=== PATIENT | male | born 1980 | race Caucasian/White ===

== ENCOUNTER 2019-01-15 19:45 | Emergency (ER) | payer OTHER, SELFPAY ==
[~2019-01-15] VITALS: Ht 190.5 cm; Wt 87.0 kg
[2019-01-15] MEDS ORDERED: HYDROcodone/APAP 5/325 TABLET PO ONE (20:30)
[2019-01-15] MEDS ORDERED: HYDROcodone/APAP 5/325 TABLET ONE ×2 (20:30→20:31)
--- NOTE | 2019-01-15 20:33 | NUR ---
THIS IS A 38 YO MALE PT BIB [facility] C/O RIGHT WRIST PAIN/SWELLING/ABRAISIONS AND LEFT KNEE PAIN AFTER A MGLF. PT ABLE TO MOVE WRIST AND WIGGLE FINGERS. PT C/O NUMBNESS/TINGLING, ABLE TO FEEL PAIN WHEN RN OR PA TOUCH HAND. TENDER TO PALP. PT ABLE TO MOVE KNEE, C/O PAIN WITH MOVEMENT AND TENDER TO PALP. PT ADMITS TO DRINKING 4 BEERS IN 1 HOUR TONIGHT. 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 PT ON CONT BP AND O2 MONITORS. CALL LIGHT WITHIN REACH. WILL CONT TO MONITOR PT.
--- NOTE | 2019-01-15 20:37 | NUR ---
TASK RN: PT. MEDICATED PER DEC FOR C/O 06/25 RIGHT WRIST AND KNEE PAIN. VS UPDATED. CALL LIGHT IN REACH. ALL SAFETY MEASUES OBSERVED.
[2019-01-15 21:28] VITALS: BP 106/79
== END 2019-01-15 21:29 | disposition home or self-care (01) ==
LOC: ED 21:23
DX: S63.521A Sprain of radiocarpal joint of right wrist, initial encounter (principal); S60.211A Contusion of right wrist, initial encounter; S60.222A Contusion of left hand, initial encounter; S80.02XA Contusion of left knee, initial encounter; E78.5 Hyperlipidemia, unspecified; I48.91 Unspecified atrial fibrillation; W01.0XXA Fall on same level from slipping, tripping and stumbling without subsequent striking against object, initial encounter; Y93.89 Activity, other specified; Y92.89 Other specified places as the place of occurrence of the external cause; Y99.8 Other external cause status
CPT/HCPCS: 99283

== ENCOUNTER 2019-01-16 01:26 | Emergency (ER) | payer SELFPAY ==
[~2019-01-16] VITALS: Ht 190.5 cm; Wt 93.5 kg
--- NOTE | 2019-01-16 01:49 | NUR ---
Note clement in EDM - 01/16/19 at 0315 by MADDIE PT. STATES "I AM SEEING THINGS AND HEARING THINGS AND I THINK PEOPLE ARE AFTER ME." DENIES SI/HI BUT STATES "THE VOICES TELL ME TO KILL JUMP OFF THE BRIDGE BUT I'M NOT GOING TO". PT. IS HOMELESS AT THIS TIME. PT'S BELONGINGS REMOVED FROM ROOM (2 BAGS) L0CKED IN SECURITY LOCKER, GARAGE DOORS DOWN, SITTER IN STEWART FOR CONTINOUS MONITORING.
--- NOTE | 2019-01-16 01:49 | NUR ---
PT STATES "I AM SEEING THINGS AND HEARING THINGS AND I THINK PEOPLE ARE AFTER ME." DENIES SI/HI BUT STATES "THE VOICES TELL ME TO KILL JUMP OFF THE BRIDGE BUT I'M NOT GOING TO". PT IS HOMELESS AT THIS TIME. PT'S BELONGINGS REMOVED FROM ROOM (2 BAGS) L0CKED IN SECURITY LOCKER, GARAGE DOORS DOWN, SITTER IN STEWART FOR CONTINOUS MONITORING.
[2019-01-16 02:15] VITALS: BP 145/82
--- NOTE | 2019-01-16 02:40 | NUR ---
SPOKE WITH ABOUT PT. PT TO BE DISCHARGED AFTER. SPLINT APPLIED. PT HAS BEEN SEEN HERE YESTERDAY AND ALSO AT [facility]. PT IS HOMELESS AND HAS NO WHERE TO GO. PT OFFERED CAB VOUCHER TO HALFWAY. PT HAS AN APPT AT [facility] IN AM. PT GIVEN BELONGINGS AND DISCHARGE PAPERS.
--- NOTE | 2019-01-16 02:54 | NUR ---
PT ANGRY ABOUT BEING DISCHARGED. MD CAME BACK AND SPOKE TO PT. PT BECOMING INCREASINGLY AGITATED. SECURITY CALLED TO ASSIST WITH DISCHARGE.
== END 2019-01-16 03:02 | disposition home or self-care (01) ==
LOC: ED 02:49
DX: S60.211A Contusion of right wrist, initial encounter (principal); F20.9 Schizophrenia, unspecified; E78.5 Hyperlipidemia, unspecified; I48.91 Unspecified atrial fibrillation; Z72.9 Problem related to lifestyle, unspecified; Z59.0 Homelessness; Z76.5 Malingerer [conscious simulation]; F17.200 Nicotine dependence, unspecified, uncomplicated; W19.XXXA Unspecified fall, initial encounter; Y93.89 Activity, other specified; Y92.89 Other specified places as the place of occurrence of the external cause; Y99.8 Other external cause status
CPT/HCPCS: 29125; 99284

== ENCOUNTER 2020-02-28 22:58 | Inpatient (IN) | payer MEDICAID ==
[~2020-02-28] VITALS: Ht 167.6 cm; Wt 95.3 kg
[~2020-02-28 22:58] MED LIST: CLON0.1T22 PO; WARF1TAB PO
[2020-02-28] MEDS ORDERED: ACETAMINOPHEN 325 MG TABLET PO PRN (23:30)
[2020-02-28] MEDS ORDERED: NITROGLYCERIN 0.4 MG/SPRAY SL PRN (23:30)
[2020-02-28] MEDS ORDERED: NITROGLYCERIN 0.4 MG BOTTLE (25 TABS) SL PRN (23:30)
[2020-02-28] MEDS ORDERED: PLEASE ENTER HEIGHT AND WEIGHT MC SCH (23:45)
[2020-02-29] VITALS (7 sets, daily range): BP systolic 111–160; BP diastolic 62–97
[2020-02-29] MEDS: morphine SULFATE 10 MG/ML, 1ML IVPush PRN ×3 (00:05→08:12)
[2020-02-29 00:11] LABS: TROPONIN I < 0.015 ng/mL (0.000-0.045)
[2020-02-29] MEDS: HEPARIN 5,000 UNITS/ML, 1ML SQ SCH ×3 (01:25→15:30)
[2020-02-29] MEDS: LORazepam 0.5MG TABLET PO PRN ×2 (01:25→05:44)
[2020-02-29] MEDS ORDERED: LORazepam 2 MG/ML, 1ML IV PRN ×5 (01:30)
[2020-02-29] MEDS ORDERED: LORazepam 1MG TABLET PO PRN ×2 (01:30)
[2020-02-29 02:47] LABS: TROPONIN I < 0.015 ng/mL (0.000-0.045)
[2020-02-29] MEDS: ASPIRIN 325 MG TABLET EC PO SCH (05:44)
[2020-02-29 06:10] LABS: CHOLESTEROL, TOTAL 129 mg/dL (140-239); HDL CHOL % 25 % (26-37); HDL CHOLESTEROL (DIRECT) 32 mg/dL (40-60); LDL CHOLESTEROL,CALCULATED 22 mg/dL (54-169); LDL/HDL RATIO 0.7 (0.5-3.0); TRIGLYCERIDES 373 mg/dL (50-200); TROPONIN I < 0.015 ng/mL (0.000-0.045); VLDL CHOLESTEROL 75 mg/dL (0-25)
[2020-02-29] MEDS: SODIUM CHLORIDE FLUSH 10ML SYR IVF SCH ×2 (08:12→20:29)
[2020-02-29] MEDS ORDERED: POLYETHYLENE GLYCOL 17 GM PACKET PO PRN (09:30)
[2020-02-29] MEDS ORDERED: DOCUSATE 100 MG CAPSULE PO PRN (09:30)
[2020-02-29] MEDS ORDERED: ACETAMINOPHEN 325 MG TABLET PO PRN (09:30)
[2020-02-29] MEDS ORDERED: ONDANSETRON ODT 4 MG PO PRN (09:30)
[2020-02-29 09:40] LABS: INTERNATIONAL NORMALIZED RATIO 0.89 (0.93-1.1); PROTHROMBIN TIME 9.4 Seconds (9.6-11.5)
[2020-02-29] MEDS: LORazepam 1MG TABLET PO PRN ×4 (09:55→20:29)
[2020-02-29] MEDS: MORPHINE SULFATE 4 MG/ML, 1ML IVPush PRN ×3 (12:19→20:30)
[2020-02-29] MEDS: ONDANSETRON 2MG/ML, 2ML IVPush PRN (13:45)
[2020-02-29] MEDS ORDERED: HALOPERIDOL 5 MG/ML IV ONE (17:00)
[2020-02-29] MEDS ORDERED: HALOPERIDOL 5 MG/ML ONE (17:07)
[2020-02-29] MEDS ORDERED: HALOPERIDOL 5 MG/ML IV PRN (17:30)
[2020-02-29] MEDS ORDERED: ATORVASTATIN 40 MG TABLET PO SCH (21:00)
[2020-03-01] VITALS (13 sets, daily range): BP systolic 103–149; BP diastolic 61–83
[2020-03-01] MEDS: HEPARIN 5,000 UNITS/ML, 1ML SQ SCH ×3 (00:53→16:13)
[2020-03-01] MEDS: LORazepam 0.5MG TABLET PO PRN ×4 (00:54→20:11)
[2020-03-01] MEDS: MORPHINE SULFATE 4 MG/ML, 1ML IVPush PRN ×6 (00:54→20:10)
[2020-03-01] MEDS: ASPIRIN 325 MG TABLET EC PO SCH (05:30)
[2020-03-01] MEDS ORDERED: REGADENOSON 0.4 MG/5 ML SYRINGE ONE (06:02)
[2020-03-01 06:10] LABS: ALBUMIN 3.3 g/dL (3.4-5.0); ANION GAP 6 mmol/L (5-15); CALCIUM 8.7 mg/dL (8.5-10.1); CHLORIDE 111 mmol/L (98-107)
[2020-03-01 06:14] LABS: ALANINE AMINOTRANSFERASE 36 U/L (12-78); ALKALINE PHOSPHATASE 69 U/L (45-117); BILIRUBIN,TOTAL 0.6 mg/dL (0.2-1.0); CREATININE 0.93 mg/dL (0.7-1.3); TOTAL PROTEIN 6.3 g/dL (6.4-8.2)
[2020-03-01 06:23] LABS: BASOPHILS # (AUTO) 0.02 x10^3/uL (0-0.1); BASOPHILS % (AUTO) 1 % (0-1); EOSINOPHILS # (AUTO) 0.21 x10^3/uL (0-0.4); EOSINOPHILS % (AUTO) 5 % (1-7); LYMPHOCYTES # (AUTO) 1.89 x10^3/uL (1-3.4); LYMPHOCYTES % (AUTO) 40 % (22-44); MD NO; MEAN CORPUSCULAR HEMOGLOBIN 30.2 pg (27.5-34.5); MEAN CORPUSCULAR HGB CONC 33.6 g/dL (33.2-36.2); MEAN PLATELET VOLUME 8.7 fL (7.4-10.4); MONOCYTES # (AUTO) 0.42 x10^3/uL (0.2-0.8); MONOCYTES % (AUTO) 9 % (2-9); NEUTROPHILS # (AUTO) 2.19 x10^3/uL (1.8-6.8); NEUTROPHILS % (AUTO) 46 % (42-75); PLATELET COUNT 185 x10^3/uL (130-400); RED BLOOD COUNT 4.25 x10^6/uL (4.38-5.82); RED CELL DISTRIBUTION WIDTH 13.5 % (9.4-14.8)
[2020-03-01] MEDS ORDERED: ACETAMINOPHEN 325 MG TABLET PO PRN (08:30)
[2020-03-01] MEDS ORDERED: NITR0.4T28 SL (09:12)
[2020-03-01] MEDS ORDERED: ATOR-2 PO (09:12)
[2020-03-01] MEDS ORDERED: CLOP75TA PO (09:12)
[2020-03-01] MEDS: SODIUM CHLORIDE FLUSH 10ML SYR IVF SCH ×2 (10:10→20:09)
[2020-03-01] MEDS: CLOPIDOGREL 75 MG TABLET PO SCH (10:10)
[2020-03-01] MEDS: ONDANSETRON 2MG/ML, 2ML IVPush PRN ×2 (19:26→20:10)
[2020-03-01] MEDS: ATORVASTATIN 80 MG TABLET PO SCH (20:10)
[2020-03-01] MEDS ORDERED: LIDODERM 5% PATCH TD ONE (22:00)
[2020-03-01] MEDS: LIDODERM REMOVE PATCH NOTE XX SCH (22:00)
[2020-03-02] MEDS: LORazepam 1MG TABLET PO PRN ×2 (00:02→13:15)
[2020-03-02] MEDS: MORPHINE SULFATE 4 MG/ML, 1ML IVPush PRN ×6 (00:03→20:37)
[2020-03-02 01:43] VITALS: BP 112/78
[2020-03-02] MEDS ORDERED: DIPHENHYDRAMINE 50 MG/ML, 1ML IVPush ONE (02:00)
[2020-03-02] MEDS: LORazepam 0.5MG TABLET PO PRN ×3 (04:18→20:36)
[2020-03-02] MEDS: HEPARIN 5,000 UNITS/ML, 1ML SQ SCH ×3 (06:00→20:37)
[2020-03-02] MEDS: ASPIRIN 325 MG TABLET EC PO SCH (06:00)
[2020-03-02 07:14] VITALS: BP 106/74
[2020-03-02] MEDS: CLOPIDOGREL 75 MG TABLET PO SCH (08:27)
[2020-03-02] MEDS: SODIUM CHLORIDE FLUSH 10ML SYR IVF SCH ×2 (08:27→20:43)
[2020-03-02] MEDS: LIDODERM REMOVE PATCH NOTE XX SCH (09:47)
[2020-03-02 12:23] VITALS: BP 125/77
[2020-03-02 18:57] VITALS: BP 121/75
[2020-03-02] MEDS: ATORVASTATIN 80 MG TABLET PO SCH (20:36)
[2020-03-03] VITALS: BP 105/68
[2020-03-03] MEDS: MORPHINE SULFATE 4 MG/ML, 1ML IVPush PRN ×3 (01:11→09:37)
[2020-03-03] MEDS: LORazepam 1MG TABLET PO PRN (01:35)
[2020-03-03] MEDS: ASPIRIN 325 MG TABLET EC PO SCH (05:30)
[2020-03-03] MEDS: HEPARIN 5,000 UNITS/ML, 1ML SQ SCH ×2 (05:30→13:48)
[2020-03-03] MEDS: LORazepam 0.5MG TABLET PO PRN ×3 (05:30→13:39)
[2020-03-03 08:20] VITALS: BP 120/75
[2020-03-03] MEDS: CLOPIDOGREL 75 MG TABLET PO SCH (09:37)
[2020-03-03] MEDS: SODIUM CHLORIDE FLUSH 10ML SYR IVF SCH (09:38)
[2020-03-03] MEDS: LIDODERM REMOVE PATCH NOTE XX SCH (09:59)
[2020-03-03] MEDS ORDERED: HALOPERIDOL 5 MG/ML IM PRN (11:00)
[2020-03-03] MEDS ORDERED: ACETAMINOPHEN 325 MG TABLET PO SCH (13:30)
[2020-03-03 14:45] VITALS: BP 105/60
[2020-03-04] MEDS ORDERED: ASPIRIN 81 MG TABLET EC PO SCH (06:00)
== END 2020-03-03 15:00 | DRG 198 ==
LOC: 5SO 22:58 → 3N 03-01 15:50 → 3E 03-03 14:56
PROVIDERS: ADMIT Hospitalist; ATTEND Internal Medicine
DX: R07.89 Other chest pain (principal); I25.10 Atherosclerotic heart disease of native coronary artery without angina pectoris; E66.9 Obesity, unspecified; E78.5 Hyperlipidemia, unspecified; F41.9 Anxiety disorder, unspecified; G47.00 Insomnia, unspecified; Z88.5 Allergy status to narcotic agent; Z88.0 Allergy status to penicillin; Z88.8 Allergy status to other drugs, medicaments and biological substances; Z76.5 Malingerer [conscious simulation]; Z95.5 Presence of coronary angioplasty implant and graft; Z71.3 Dietary counseling and surveillance; Z68.33 Body mass index [BMI] 33.0-33.9, adult
CPT/HCPCS: 36415; 72110; 78452; 80053; 80061; 84484; 85025; 85610; 93005; 93017; 96374; 96375; 99285; G0378; J1644; J2405; J2785; A9502; C9898; J1200; J1630; J2270

== ENCOUNTER 2020-03-03 12:23 | Inpatient (IN) | payer MEDICAID ==
[~2020-03-03] VITALS: Ht 180.3 cm; Wt 95.3 kg
[~2020-03-03 12:23] MED LIST changes: +ATOR-2 PO; +CLOP75TA PO; +NITR0.4T28 SL
[2020-03-03] MEDS ORDERED: ACETAMINOPHEN 325 MG TABLET PO PRN (13:00)
[2020-03-03] MEDS ORDERED: PLEASE ENTER HEIGHT AND WEIGHT MC SCH (15:30)
[2020-03-03] MEDS: ACETAMINOPHEN 325 MG TABLET PO PRN ×2 (17:00→17:22)
[2020-03-03] MEDS: QUETIAPINE 25MG TABLET PO PRN ×2 (17:00→20:54)
[2020-03-03] MEDS ORDERED: IBUPROFEN 200 MG TABLET PO PRN ×2 (17:00→23:00)
[2020-03-03] MEDS ORDERED: IBUPROFEN 200 MG TABLET ONE (17:04)
[2020-03-03 18:38] VITALS: BP 114/74
[2020-03-03] MEDS ORDERED: PLEASE ENTER HEIGHT MC SCH ×2 (19:00→19:14)
[2020-03-03 19:50] VITALS: BP 114/74
[2020-03-03] MEDS: LORazepam 1MG TABLET PO PRN (20:54)
[2020-03-03] MEDS ORDERED: ATORVASTATIN 80 MG TABLET PO SCH (21:00)
[2020-03-04] MEDS: LORazepam 1MG TABLET PO PRN ×2 (03:15→10:26)
[2020-03-04 07:57] VITALS: BP 98/66
[2020-03-04] MEDS ORDERED: CLOPIDOGREL 75 MG TABLET PO SCH (09:00)
[2020-03-04] MEDS: ACETAMINOPHEN 325 MG TABLET PO PRN (11:08)
[2020-03-04] MEDS: QUETIAPINE 25MG TABLET PO PRN (11:08)
== END 2020-03-04 16:00 | disposition left against medical advice (07) | DRG 753 ==
LOC: 3E 14:59
PROVIDERS: ADMIT Psychiatry & Neurology Psychosomatic Medicine; ATTEND Psychiatry & Neurology Psychosomatic Medicine
DX: F39 Unspecified mood [affective] disorder (principal); E78.5 Hyperlipidemia, unspecified; F10.239 Alcohol dependence with withdrawal, unspecified; F60.9 Personality disorder, unspecified; K21.9 Gastro-esophageal reflux disease without esophagitis; I25.10 Atherosclerotic heart disease of native coronary artery without angina pectoris; I10 Essential (primary) hypertension; F63.9 Impulse disorder, unspecified; Z88.0 Allergy status to penicillin; Z88.8 Allergy status to other drugs, medicaments and biological substances; Z53.29 Procedure and treatment not carried out because of patient's decision for other reasons
CPT/HCPCS: 36415; 72110; 78452; 80053; 80061; 81003; 84484; 85025; 85379; 85610; 93005; 93017; 96374; 96375; 99285; G0378; J1644; J2405; J2785; Q0162; A9502; C9898; J1200; J1630; J2060; J2270

== ENCOUNTER 2020-06-01 10:20 | Emergency (ER) | payer MEDICAID ==
[~2020-06-01] VITALS: Ht 190.5 cm; Wt 100.0 kg
[~2020-06-01 10:20] MED LIST changes: -WARF1TAB PO; +WARF1TAB2 PO
--- NOTE | 2020-06-01 10:32 | NUR ---
SADIE. REPORT RECEIVED FROM EMS. PT C/O SUDEN ONSET OF RUQ ABD PAIN SINCE 9:30 AM TODAY AT [employer]PORT SLOT MACHINE. PT WAS NOT FEELING WELL AFTER STOOD UP AND STARTED ABD PAIN WITH N/V. 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 PT'S PAIN LEVEL IS 3/10 AT THIS TIME. PT'S AOX4. RESPS EVEN AND UNLABORED. BP/SPO2 MONITORS IN PLACE. CALL LIGHT WITHIN REACH.
--- NOTE | 2020-06-01 10:56 | NUR ---
EKG DONE AT BEDSIDE BY EMT AT THIS TIME.
[2020-06-01] MEDS ORDERED: MORPHINE SULFATE 4 MG/ML, 1ML ONE ×2 (10:58→11:56)
[2020-06-01] MEDS ORDERED: SODIUM CHLORIDE FLUSH 10ML SYR IVF ONE (11:00)
[2020-06-01] MEDS ORDERED: ONDANSETRON 2MG/ML, 2ML IVPush ONE (11:00)
[2020-06-01] MEDS: MORPHINE SULFATE 4 MG/ML, 1ML IVPush PRN ×2 (11:00→12:02)
[2020-06-01 11:01] LABS: BASOPHILS # (AUTO) 0.02 x10^3/uL (0-0.1); BASOPHILS % (AUTO) 0 % (0-1); EOSINOPHILS % (AUTO) 1 % (1-7); LYMPHOCYTES # (AUTO) 1.61 x10^3/uL (1-3.4); LYMPHOCYTES % (AUTO) 23 % (22-44); MD NO; MEAN CORPUSCULAR HEMOGLOBIN 29.9 pg (27.5-34.5); MEAN CORPUSCULAR HGB CONC 33.1 g/dL (33.2-36.2); MEAN CORPUSCULAR VOLUME 90.3 fL (81-97); MONOCYTES # (AUTO) 0.49 x10^3/uL (0.2-0.8); MONOCYTES % (AUTO) 7 % (2-9); NEUTROPHILS # (AUTO) 4.81 x10^3/uL (1.8-6.8); NEUTROPHILS % (AUTO) 68 % (42-75); PLATELET COUNT 218 x10^3/uL (130-400); RED BLOOD COUNT 5.07 x10^6/uL (4.38-5.82); RED CELL DISTRIBUTION WIDTH 13.4 % (9.4-14.8)
--- NOTE | 2020-06-01 11:03 | NUR ---
URINAL AT BEDSIDE. PT AWARE OF UA. US AT BEDSIDE AT THIS TIME.
--- NOTE | 2020-06-01 11:03 | NUR ---
PT MEDICATED PER EMAR FOR PAIN. PT TOLERATED WELL. PT REFUSED ZOFRAN.
[2020-06-01 11:12] LABS: ALBUMIN 4.2 g/dL (3.4-5.0); ANION GAP 7 mmol/L (5-15); CALCIUM 9.2 mg/dL (8.5-10.1); CHLORIDE 111 mmol/L (98-107)
[2020-06-01 11:17] LABS: ALANINE AMINOTRANSFERASE 33 U/L (12-78); ALKALINE PHOSPHATASE 88 U/L (45-117); BILIRUBIN,TOTAL 0.7 mg/dL (0.2-1.0); CREATININE 0.96 mg/dL (0.7-1.3); TOTAL PROTEIN 7.3 g/dL (6.4-8.2); TROPONIN I < 0.015 ng/mL (0.000-0.045)
--- NOTE | 2020-06-01 12:02 | NUR ---
report given to misael whitaker.
--- NOTE | 2020-06-01 12:03 | NUR ---
REPORT TAKEN FROM DILMA MANRIQUE. ASSUMED CARE. UA SENT. PT MEDICATED PER MAR
[2020-06-01 12:10] LABS: MICROSCOPIC NOT IND
[2020-06-01 12:14] VITALS: BP 134/101
--- NOTE | 2020-06-01 12:14 | NUR ---
PT MEDICATED PER MAR
== END 2020-06-01 12:50 | disposition home or self-care (01) ==
LOC: ED 10:45
DX: R10.11 Right upper quadrant pain (principal); R11.2 Nausea with vomiting, unspecified; I25.2 Old myocardial infarction; I25.10 Atherosclerotic heart disease of native coronary artery without angina pectoris; I48.91 Unspecified atrial fibrillation; E78.5 Hyperlipidemia, unspecified; Z90.49 Acquired absence of other specified parts of digestive tract; Z88.0 Allergy status to penicillin; Z87.891 Personal history of nicotine dependence; Z88.1 Allergy status to other antibiotic agents
CPT/HCPCS: 36415; 76700; 80053; 81003; 83690; 84484; 85025; 93005; 96374; 96376; 99285; J2270

== ENCOUNTER 2020-07-11 00:07 | Emergency (ER) | payer MEDICAID ==
[~2020-07-11] VITALS: Ht 190.5 cm; Wt 109.1 kg
[2020-07-11] MEDS ORDERED: SODIUM CHLORIDE 0.9% 1,000ML IVBOLUS ONE (00:30)
[2020-07-11 00:59] LABS: BASOPHILS # (AUTO) 0.02 x10^3/uL (0-0.1); BASOPHILS % (AUTO) 0 % (0-1); EOSINOPHILS # (AUTO) 0.21 x10^3/uL (0-0.4); EOSINOPHILS % (AUTO) 3 % (1-7); LYMPHOCYTES # (AUTO) 1.88 x10^3/uL (1-3.4); LYMPHOCYTES % (AUTO) 29 % (22-44); MD NO; MEAN CORPUSCULAR HEMOGLOBIN 30.5 pg (27.5-34.5); MEAN CORPUSCULAR HGB CONC 34.1 g/dL (33.2-36.2); MONOCYTES # (AUTO) 0.56 x10^3/uL (0.2-0.8); MONOCYTES % (AUTO) 9 % (2-9); NEUTROPHILS # (AUTO) 3.76 x10^3/uL (1.8-6.8); NEUTROPHILS % (AUTO) 59 % (42-75); PLATELET COUNT 234 x10^3/uL (130-400); RED BLOOD COUNT 4.81 x10^6/uL (4.38-5.82); RED CELL DISTRIBUTION WIDTH 13.7 % (9.4-14.8)
[2020-07-11 01:04] LABS: ALBUMIN 3.9 g/dL (3.4-5.0); ANION GAP 7 mmol/L (5-15); CALCIUM 8.5 mg/dL (8.5-10.1); CHLORIDE 112 mmol/L (98-107)
[2020-07-11 01:09] LABS: ALANINE AMINOTRANSFERASE 44 U/L (12-78); ALKALINE PHOSPHATASE 92 U/L (45-117); BILIRUBIN,TOTAL 0.4 mg/dL (0.2-1.0); CREATININE 0.95 mg/dL (0.7-1.3); TOTAL PROTEIN 7.3 g/dL (6.4-8.2)
[2020-07-11 01:36] VITALS: BP 117/81
--- NOTE | 2020-07-11 01:36 | NUR ---
PT REQUESTING PAIN MEDICATIONS STATES "IM LITERALLY DYING". MD NOTIFIED, MD TO SEE PT.
--- NOTE | 2020-07-11 01:49 | NUR ---
PT CONTINUOUSLY USING CALL LIGHT STATES "I DONT KNOW WHAT KIND OF HOSPITAL THIS IS BUT I WANT PAIN MEDS NOW!" PT SHOUTING AND VERBALLY AGGRESSIVE TO STAFF.
[2020-07-11] MEDS ORDERED: OXYcodone/APAP 5/325MG TABLET ONE (01:56)
[2020-07-11] MEDS ORDERED: MAALOX/HYOSCYAMINE/LIDOCAINE 45 ML BTL ONE (01:57)
[2020-07-11] MEDS ORDERED: MAALOX/HYOSCYAMINE/LIDOCAINE 45 ML BTL PO ONE (02:00)
[2020-07-11] MEDS ORDERED: OXYcodone/APAP 5/325MG TABLET PO ONE (02:00)
--- NOTE | 2020-07-11 02:08 | NUR ---
SECURITY ASSISTED PT TO D/C. PT MEDICATED PER MAR PER MD ORDER. PT STATES "I WANT A PRESCRIPTION FOR PAIN MEDICATIONS, THIS IS BULLSHIT, YOU DIDN'T EVEN GIVE ME PAIN MEDICATION". PT THROWING ITEMS IN ROOM AND SHOUTING AT THIS RN. SECURITY CALLED.
== END 2020-07-11 02:13 | disposition home or self-care (01) ==
LOC: ED 02:07
DX: G89.29 Other chronic pain (principal); R10.13 Epigastric pain; R00.0 Tachycardia, unspecified; R11.2 Nausea with vomiting, unspecified; E78.5 Hyperlipidemia, unspecified; I25.10 Atherosclerotic heart disease of native coronary artery without angina pectoris; I48.91 Unspecified atrial fibrillation; I21.9 Acute myocardial infarction, unspecified; Z87.891 Personal history of nicotine dependence
CPT/HCPCS: 36415; 80053; 83690; 85025; 93005; 96360; 99284; J7030; 96361